=== PATIENT | female | born 1970 | race American Indian/Alaskan Native ===

== ENCOUNTER 2021-05-03 15:05 | Inpatient (IN) | payer MEDICAID ==
[2021-05-03] MEDS ORDERED: Famotidine 20 MG/2 ML SDV IVPUSH ONE (18:57)
[2021-05-03] MEDS ORDERED: Ondansetron 4 MG/2 ML SDV IVPUSH ONE (18:57)
[2021-05-03] MEDS ORDERED: Morphine 4 MG/ML VIAL IVPUSH ONE (19:30)
[2021-05-03 20:05] LABS: BLOOD UREA NITROGEN,BUN 12 mg/dL (7.0-18.0); CARBON DIOXIDE,CO2 25.7 mmol/L (21.0-32.0); CHLORIDE,CL 87 mmol/L (98-107); GLUCOSE RANDOM 89 mg/dL (74-106); LIPASE 103 U/L (73-393); POTASSIUM,K 4.5 mmol/L (3.5-5.1); SODIUM,NA 122 mmol/L (136-145)
[2021-05-03] MEDS ORDERED: Piperacillin/Tazobactam 3.375 GM in Sodium Chloride 0.9% 50 ML IV ONE (20:43)
[2021-05-03] MEDS ORDERED: cefTRIAXone 1 GM in Sodium Chloride 0.9% 50 ML IV ONE (20:58)
[2021-05-03] MEDS ORDERED: Sodium Chloride 0.9% 1,000 ML IV SCH (21:30)
[2021-05-04] MEDS ORDERED: Acetaminophen 325 MG Tab PO PRN (00:14)
[2021-05-04] MEDS ORDERED: Ondansetron 4 MG/2 ML SDV IVPUSH PRN (00:14)
[2021-05-04] MEDS ORDERED: Albuterol/Ipratropium 3.0-0.5 MG/3 ML Neb Soln NEB PRN (00:14)
[2021-05-04] MEDS ORDERED: Lactated Ringers 1,000 ML IV SCH (00:15)
[2021-05-04] MEDS: Heparin Sodium 5,000 Units/ML Vial SUBCUT SCH ×3 (00:44→14:11)
[2021-05-04] MEDS ORDERED: 50% Dextrose in Water 50 ML Syringe IVPUSH PRN (00:47)
[2021-05-04] MEDS ORDERED: Glucagon,Human Recombinant 1 MG Vial IM PRN (00:47)
[2021-05-04] MEDS: Piperacillin/Tazobactam 3.375 GM in Sodium Chloride 0.9% 50 ML IV SCH ×2 (00:51→08:28)
[2021-05-04] MEDS: Morphine 2 MG/ML SYRINGE IVPUSH PRN ×2 (05:08→08:25)
[2021-05-04] MEDS: Insulin Aspart 100 Units/ML 3 ML Pen SUBCUT SCH ×2 (06:59→12:15)
[2021-05-04 07:53] LABS: BLOOD UREA NITROGEN,BUN 9 mg/dL (7.0-18.0); CARBON DIOXIDE,CO2 27.5 mmol/L (21.0-32.0); CHLORIDE,CL 94 mmol/L (98-107); GLUCOSE RANDOM 118 mg/dL (74-106); POTASSIUM,K 4.4 mmol/L (3.5-5.1); SODIUM,NA 130 mmol/L (136-145)
[2021-05-04] MEDS ORDERED: Insulin Glargine,Human Rec. Analog 100 Units/ML 3 ML Pen SUBCUT SCH (09:00)
== END 2021-05-04 14:50 | disposition home or self-care (01) | DRG 690 ==
LOC: MW.ED 15:05 → MW.MS 21:16
PROVIDERS: ADMIT Student in an Organized Health Care Education/Training Program; ATTEND Student in an Organized Health Care Education/Training Program
DX: N39.0 Urinary tract infection, site not specified (principal); E87.1 Hypo-osmolality and hyponatremia; R10.11 Right upper quadrant pain; K80.80 Other cholelithiasis without obstruction; E11.9 Type 2 diabetes mellitus without complications; F17.210 Nicotine dependence, cigarettes, uncomplicated; Z20.822 Contact with and (suspected) exposure to COVID-19; K80.20 Calculus of gallbladder without cholecystitis without obstruction; Z79.899 Other long term (current) drug therapy; Z79.4 Long term (current) use of insulin; Z79.1 Long term (current) use of non-steroidal anti-inflammatories (NSAID); Z79.2 Long term (current) use of antibiotics
CPT/HCPCS: 36415; 80053; 80305; 80307; 81001; 82436; 83690; 83935; 84133; 84300; 84703; 85025; J2270; J2405; J3490; 82947; 83735; 84100; 96374; 96375; 99284-25; A9270-GY; J0696; J1644; J1815-GY; J2543; J7120; U0002

== ENCOUNTER 2021-05-11 07:40 | Day surgery (SDC) | payer MEDICAID ==
[~2021-05-11 07:40] MED LIST: Lactated Ringers 1,000 ML IV SCH; Propofol 200 MG/20 ML SDV ONE; fentaNYL 100 MCG/2 ML SDV ONE
[2021-05-11] MEDS ORDERED: ePHEDrine 50 MG/ML SDV ONE (09:10)
[2021-05-11] MEDS ORDERED: Propofol 200 MG/20 ML SDV ONE (09:20)
== END 2021-05-11 10:08 | disposition home or self-care (01) ==
LOC: MW.SDS 07:40
PROVIDERS: ATTEND Surgery
DX: D12.6 Benign neoplasm of colon, unspecified (principal); K57.30 Diverticulosis of large intestine without perforation or abscess without bleeding; N39.0 Urinary tract infection, site not specified; E11.9 Type 2 diabetes mellitus without complications; F17.210 Nicotine dependence, cigarettes, uncomplicated; Z79.899 Other long term (current) drug therapy; Z79.4 Long term (current) use of insulin; Z79.84 Long term (current) use of oral hypoglycemic drugs
CPT/HCPCS: 45380; 82947; J2704; J3010; J7120; 00811

== ENCOUNTER 2021-06-06 08:41 | Day surgery (SDC) | payer MEDICAID ==
[~2021-06-06 08:41] MED LIST changes: +Acetaminophen 1,000 MG in Premix Bag 1 BAG IV SCH; +Ketamine HCL/NACL, ISO-OSM 50 MG/5 ML Syringe ONE; +Pregabalin 75 MG Cap PO SCH; +cefOXitin 2 GM in Premix Bag 1 BAG IV SCH; -fentaNYL 100 MCG/2 ML SDV ONE; +fentaNYL 250 MCG/5 ML SDV ONE
[2021-06-06] MEDS ORDERED: Bupivacaine 0.25% 30 ML SDV ONE (09:15)
[2021-06-06] MEDS ORDERED: Octyl 2-Cyanoacrylate 1 Tube ONE (09:15)
[2021-06-06] MEDS ORDERED: HYDROmorphone 1 MG/ML Syringe IVPUSH PRN (09:26)
[2021-06-06] MEDS ORDERED: Albuterol 0.083% 2.5 MG/3 ML Neb Soln NEB PRN (09:26)
[2021-06-06] MEDS ORDERED: Ondansetron 4 MG/2 ML SDV IVPUSH PRN (09:26)
[2021-06-06] MEDS ORDERED: Metoclopramide 10 MG/2 ML SDV IVPUSH PRN (09:26)
[2021-06-06] MEDS ORDERED: Naloxone 0.4 MG/ML SDV IVPUSH PRN (09:26)
[2021-06-06 10:23] LABS: BLOOD UREA NITROGEN,BUN 7 mg/dL (7.0-18.0); CARBON DIOXIDE,CO2 26.3 mmol/L (21.0-32.0); CHLORIDE,CL 102 mmol/L (98-107); GLUCOSE RANDOM 149 mg/dL (74-106); POTASSIUM,K 4.4 mmol/L (3.5-5.1); SODIUM,NA 135 mmol/L (136-145)
[2021-06-06] MEDS ORDERED: cefOXitin 100 ML ONE (10:55)
[2021-06-06] MEDS ORDERED: fentaNYL 250 MCG/5 ML SDV ONE (11:12)
[2021-06-06] MEDS ORDERED: Propofol 200 MG/20 ML SDV ONE (11:29)
[2021-06-06] MEDS ORDERED: fentaNYL 100 MCG/2 ML SDV ONE (11:31)
[2021-06-06] MEDS ORDERED: HYDROmorphone 2 MG/ML Syringe ONE (11:56)
[2021-06-06] MEDS ORDERED: Ondansetron 4 MG/2 ML SDV ONE (12:07)
[2021-06-06] MEDS ORDERED: Dexamethasone 4 MG/ML 5 ML MDV ONE (12:07)
[2021-06-06] MEDS ORDERED: Glycopyrrolate 0.2 MG/ML SDV ONE (12:07)
[2021-06-06] MEDS ORDERED: Sugammadex Sodium 200 MG/2 ML VIAL ONE (12:07)
[2021-06-06] MEDS ORDERED: Rocuronium Bromide 50 MG/5 ML Syringe ONE (12:07)
[2021-06-06] MEDS ORDERED: ePHEDrine 50 MG/ML SDV ONE (12:07)
[2021-06-06] MEDS: fentaNYL 100 MCG/2 ML SDV IVPUSH PRN ×2 (12:42→12:47)
== END 2021-06-06 14:40 | disposition home or self-care (01) ==
LOC: MW.SDS 08:41
PROVIDERS: ATTEND Surgery
DX: K80.10 Calculus of gallbladder with chronic cholecystitis without obstruction (principal); E11.9 Type 2 diabetes mellitus without complications; F17.210 Nicotine dependence, cigarettes, uncomplicated; F32.A Depression, unspecified; Z98.890 Other specified postprocedural states; Z79.4 Long term (current) use of insulin; Z79.84 Long term (current) use of oral hypoglycemic drugs; Z79.899 Other long term (current) drug therapy
CPT/HCPCS: 36415; 47562; 80053; 82947; 85027; A9270; J0131; J0694; J1100; J1170; J2370; J2405; J2704; J3010; J3490; J7120; 00790